=== PATIENT | female | born 1985 | race Caucasian/White ===

== ENCOUNTER 2016-08-31 12:51 | Emergency (ER) | payer OTHER ==
[2016-08-31 13:39] LABS: SPECIFIC GRAVITY 1.015 (1.001-1.030); URINE BILIRUBIN NEGATIVE (NEGATIVE); URINE BLOOD 4+ (NEGATIVE); URINE GLUCOSE (UA) NEGATIVE (NEGATIVE); URINE LEUKOCYTE ESTERASE 2+ (NEGATIVE); URINE NITRITE NEGATIVE (NEGATIVE); URINE PROTEIN 1+ (NEGATIVE); URINE UROBILINOGEN NORMAL (0-1 mg/dl)
[2016-08-31 13:41] LABS: URINE APPEARANCE HAZY; URINE COLOR YELLOW
[2016-08-31 13:47] LABS: URINE WBC 40-50 /hpf
[2016-08-31 13:49] LABS: URINE BACTERIA FEW
[2016-08-31] MEDS ORDERED: LACTATED RINGERS 1,000 ML ONE (15:50)
[2016-08-31] MEDS ORDERED: MORPHINE SULFATE 4 MG/ML SYRINGE ONE ×2 (15:50→17:13)
[2016-08-31] MEDS ORDERED: ONDANSETRON 4 MG/2ML 2 ML VIAL ONE (15:50)
[2016-08-31 15:57] LABS: ABSOLUTE NEUTROPHIL COUNT 4.9 K/mm3 (1.8-7.7); BASO % 0.1 % (0.2-1.0); EOS # 0.1 (0.0-0.5); EOS % 1.1 % (0.9-2.9); HEMATOCRIT 39.6 % (37.0-47.0); IMM NEUT% 0.1 % (0-1); LYMPH # 2.7 (1.0-4.8); MEAN CORPUSCULAR HEMOGLOBIN 30.5 pg (27.0-31.0); MEAN CORPUSCULAR HGB CONC 32.8 g/dl (33.0-37.0); MEAN PLATELET VOLUME 10.9 fl (7.4-10.4); MONO # 0.3 (0.0-0.8); MONO % 3.9 % (4-12); NEUT % 60.8 % (43-75); PLATELET COUNT 236 K/mm3 (130-400); RED CELL DISTRIBUTION WIDTH 12.8 % (11.5-14.5)
[2016-08-31 16:10] LABS: ALB/GLOB RATIO 1.3 (>1.0); ALBUMIN 4.3 gm/dL (3.5-5.7); CALCIUM 9.3 mg/dL (8.6-10.3)
[2016-08-31] MEDS ORDERED: CEFTRIAXONE 1 GRAM DUPLEX 50 ML IV ONE (17:09)
== END 2016-08-31 17:49 | disposition home or self-care (01) ==
LOC: ED 12:51
DX: O23.01 Infections of kidney in pregnancy, first trimester (principal); O20.9 Hemorrhage in early pregnancy, unspecified; O21.0 Mild hyperemesis gravidarum; O16.1 Unspecified maternal hypertension, first trimester; O99.331 Smoking (tobacco) complicating pregnancy, first trimester; F17.210 Nicotine dependence, cigarettes, uncomplicated; Z3A.01 Less than 8 weeks gestation of pregnancy
CPT/HCPCS: 84703; 85025; 87086; 80053; 81001; 96375 ×2; 99283; 96376; 96361; 96365; 99284; J2270 ×2; J2405; J7120; J0696